=== PATIENT | male | born 1980 | race Caucasian/White ===

== ENCOUNTER → 2017-01-11 | Outpatient (CLI) | payer OTHER ==
[~2017-01-11] MED LIST: VENTOLIN H0.09 MG/AC INH
== END | disposition home or self-care (01) ==
LOC: RESCLI 09:47
DX: L03.818 Cellulitis of other sites (principal); I10 Essential (primary) hypertension; E66.01 Morbid (severe) obesity due to excess calories; E78.00 Pure hypercholesterolemia, unspecified; E11.65 Type 2 diabetes mellitus with hyperglycemia; Z88.1 Allergy status to other antibiotic agents

== ENCOUNTER → 2017-01-18 | Outpatient (CLI) | payer OTHER | END | disposition home or self-care (01) | LOC: RESCLI 03:10 | DX: E11.65 Type 2 diabetes mellitus with hyperglycemia (principal); L03.818 Cellulitis of other sites; B35.3 Tinea pedis; I10 Essential (primary) hypertension; E66.01 Morbid (severe) obesity due to excess calories; E78.00 Pure hypercholesterolemia, unspecified; L81.9 Disorder of pigmentation, unspecified; R00.0 Tachycardia, unspecified; L25.9 Unspecified contact dermatitis, unspecified cause ==

== ENCOUNTER → 2017-03-15 | Outpatient (CLI) | payer OTHER ==
--- NOTE | 2017-03-15 11:19 | NUR ---
INFORMED SIGNED CONSENT OBTAINED FOR CGXT WITH DR ARGUETA. RESTING EKG IN SUPINE POSTION NSR HR 92 BP 168/94. STANDING HR 95 BP 148/100. PT COMPLETED 7:10 OF A KERLINE PROTOCOL WITH COMPLETION OF 1:10 OF STAGE III AT 3.4 MPH AND 14% GRADE. PT REACHED A PEAK HR OF 166 WHICH REPRESENTS 88% OF PREDICTED MAXIMUM AND A PEAK BP OF 248/50. NO ARRHYTHMIAS OR ST CHANGES NOTED. TEST TERMINATED DUE TO FATIGUE. LAST RECOVERY HR OF 118 BP 170/78. PT IN STABLE CONDITION, AWAITING NUCLEAR IMAGES.
== END | disposition home or self-care (01) ==
LOC: CARD 01:48
DX: R07.89 Other chest pain (principal); R06.02 Shortness of breath

== ENCOUNTER → 2017-03-17 | Outpatient (CLI) | payer OTHER | END | disposition home or self-care (01) | LOC: US 00:48 | DX: M54.12 Radiculopathy, cervical region (principal); L53.9 Erythematous condition, unspecified; M79.89 Other specified soft tissue disorders ==

== ENCOUNTER → 2017-05-31 | Outpatient (CLI) | payer OTHER | END | disposition home or self-care (01) | LOC: RESCLI 10:14 | DX: I10 Essential (primary) hypertension (principal); H10.31 Unspecified acute conjunctivitis, right eye; E11.65 Type 2 diabetes mellitus with hyperglycemia; E78.00 Pure hypercholesterolemia, unspecified; E66.01 Morbid (severe) obesity due to excess calories ==

== ENCOUNTER → 2017-08-15 | Outpatient (CLI) | payer OTHER ==
[2017-08-15 14:31] LABS: BASO # 0.1 10*3/uL (0.0-0.1); BASO % 0.6 % (0.0-1.0); EOS # 0.1 10*3/uL (0.0-0.4); EOS % 1.5 % (1.0-4.0); HEMATOCRIT 44.6 % (42.0-52.0); HEMOGLOBIN 15.2 g/dl (14.0-18.0); LYMPH # 2.6 10*3/uL (1.3-4.4); LYMPH % 27.6 % (27.0-41.0); MEAN CELL VOLUME 82.3 fl (80.0-94.0); MEAN CORPUSCULAR HGB CONC 34.1 g/dl (33.0-37.0); MEAN PLATELET VOLUME 9.5 fl (9.6-12.3); MONO # 0.5 10*3/uL (0.1-1.0); NEUT # 6.2 10*3/uL (2.3-7.9); NEUT % 64.8 % (47.0-73.0); PLATELET COUNT AUTOMATED 317 10*3/uL (130-400); RED BLOOD COUNT 5.42 10*6/uL (4.50-5.90); RED CELL DISTRI WIDTH 13.2 % (0-14.5); WHITE BLOOD COUNT 9.6 10*3/uL (4.8-10.8)
[2017-08-15 14:49] LABS: ALKALINE PHOSPHATASE 78 U/L (45-117); BUN 15 mg/dl (7-24); CHLORIDE 103 mmol/L (98-107); CHOLESTEROL 197 mg/dL (<200); CREATININE 1.05 mg/dL (0.70-1.30); HDL CHOLESTEROL 39 mg/dl (40-60); LDL CHOLESTEROL 111 mg/dL (9-159); POTASSIUM 3.7 mmol/L (3.5-5.1); SGOT/AST 13 IU/L (3-35); SGPT/ALT 30 U/L (12-78); SODIUM 139 mmol/L (136-145); TOTAL PROTEIN 7.9 gm/dL (6.4-8.2); TRIGLYCERIDES 235 mg/dl (<150); VLDL CHOLESTEROL 47 mg/dL (6-40)
== END | disposition home or self-care (01) ==
LOC: LAB 13:05
PROVIDERS: Internal Medicine
DX: Z00.00 Encounter for general adult medical examination without abnormal findings (principal); I10 Essential (primary) hypertension; E11.65 Type 2 diabetes mellitus with hyperglycemia

== ENCOUNTER → 2017-12-26 | Outpatient (CLI) | payer OTHER ==
[~2017-12-26] MED LIST changes: +GLUCOPHAGE1000 MG PO; +HYDROCHLOROTHIA25 M1 PO; +JANUMET 50-1,01 EACH PO; +PRINIVIL10 MG PO
[2017-12-26 09:45] LABS: BASO # 0.1 10*3/uL (0.0-0.1); BASO % 0.6 % (0.0-1.0); EOS # 0.1 10*3/uL (0.0-0.4); EOS % 1.4 % (1.0-4.0); HEMATOCRIT 46.8 % (42.0-52.0); HEMOGLOBIN 14.9 g/dl (14.0-18.0); LYMPH # 2.3 10*3/uL (1.3-4.4); LYMPH % 24.6 % (27.0-41.0); MEAN CELL VOLUME 83.4 fl (80.0-94.0); MEAN CORPUSCULAR HGB 26.6 pg (27.0-31.0); MEAN CORPUSCULAR HGB CONC 31.8 g/dl (33.0-37.0); MEAN PLATELET VOLUME 9.2 fl (9.6-12.3); MONO # 0.6 10*3/uL (0.1-1.0); MONO % 6.4 % (3.0-9.0); NEUT # 6.2 10*3/uL (2.3-7.9); NEUT % 66.7 % (47.0-73.0); PLATELET COUNT AUTOMATED 308 10*3/uL (130-400); RED BLOOD COUNT 5.61 10*6/uL (4.50-5.90); RED CELL DISTRI WIDTH 13.1 % (0-14.5); WHITE BLOOD COUNT 9.3 10*3/uL (4.8-10.8)
[2017-12-26 10:13] LABS: ALBUMIN 4.3 gm/dl (3.1-4.5); ALKALINE PHOSPHATASE 68 U/L (45-117); BUN 20 mg/dl (7-24); CHLORIDE 104 mmol/L (98-107); CHOLESTEROL 156 mg/dL (<200); CREATININE 1.12 mg/dL (0.70-1.30); HDL CHOLESTEROL 38 mg/dl (40-60); LDL CHOLESTEROL 80 mg/dL (9-159); POTASSIUM 3.6 mmol/L (3.5-5.1); SGOT/AST 12 IU/L (3-35); SGPT/ALT 33 U/L (12-78); SODIUM 139 mmol/L (136-145); TOTAL PROTEIN 8.1 gm/dL (6.4-8.2); TRIGLYCERIDES 188 mg/dl (<150); VLDL CHOLESTEROL 38 mg/dL (6-40)
== END | disposition home or self-care (01) ==
LOC: LAB 09:15
PROVIDERS: Internal Medicine
DX: I10 Essential (primary) hypertension (principal); E11.65 Type 2 diabetes mellitus with hyperglycemia; E66.01 Morbid (severe) obesity due to excess calories; H10.31 Unspecified acute conjunctivitis, right eye

== ENCOUNTER → 2018-02-10 | Day surgery (SDC) | payer OTHER ==
[~2018-02-10] VITALS: Ht 180.3 cm; Wt 122.5 kg
[~2018-02-10] MED LIST changes: +PROAIR HFA8.5 GM INH
--- NOTE | ~2018-02-10 | PROC NOTE ---
[place], [place] PROCEDURE NOTE NAME: SALLIE ARTIS UNIT #: [id number] ROOM: DOCTOR: CARLOS HERNANDEZ MD BIRTHDATE: [birth year] DOS: 02/10/2018 PREOPERATIVE DIAGNOSIS: Left temporal scalp soft tissue mass. POSTOPERATIVE DIAGNOSIS: Left temporal scalp epidermal inclusion cyst. PROCEDURE: Excision of left temporal epidermal inclusion cyst. SURGEON: Carlos Hernandez MD [employer]: SUSIE. ANESTHESIA: Local (1% lidocaine with epinephrine). INDICATIONS: This is a 37-year-old gentleman with a left temporal scalp mass, which is growing and he is here because he wants it removed. The procedure and its complications were explained to the patient in detail preoperatively. Complications that were discussed included but were not limited to bleeding, infection, hematoma/seroma/abscess formation and prolonged pain. He agreed to proceed. DESCRIPTION OF PROCEDURE: After identifying the patient, the patient was brought to the operating suite and laid in the supine position. After a time-out procedure was called, the parts were painted and draped in the usual sterile fashion. An elliptical incision was marked. Local anesthesia was infiltrated. An incision was made with the help of a knife and deepened in layers. The cyst was excised in its entirety with the help of blunt and sharp dissection and excised in its entirety. It was sent for histopathological diagnosis. Hemostasis was achieved with the help of electrocautery. Thereafter, the subcutaneous tissue was approximated with the help of 3-0 Vicryl in a running fashion and the edges of the skin were approximated with the help of 4-0 Vicryl in a subcuticular running fashion. Dressings were placed. The patient tolerated the procedure well. There were no complications. He was brought back to the recovery room in stable fashion. Dr. Carlos Hernandez, the attending surgeon, was present throughout the operating case. Carlos Hernandez MD CM:PROCNOTE:PROCEDURE NOTE [id number] CARLOS HERNANDEZ MD
[2018-02-10 06:47] VITALS: BP 138/82
[2018-02-10 07:24] VITALS: BP 122/82
== END | disposition home or self-care (01) ==
LOC: SDC 01-31 10:15
DX: L72.11 Pilar cyst (principal); I10 Essential (primary) hypertension; E11.9 Type 2 diabetes mellitus without complications; E78.00 Pure hypercholesterolemia, unspecified; J45.909 Unspecified asthma, uncomplicated; Z79.899 Other long term (current) drug therapy; Z88.1 Allergy status to other antibiotic agents; Z98.890 Other specified postprocedural states; Z82.49 Family history of ischemic heart disease and other diseases of the circulatory system

== ENCOUNTER → 2018-02-22 | Outpatient (CLI) | payer OTHER | END | disposition home or self-care (01) | LOC: RESCLI 10:03 | DX: I10 Essential (primary) hypertension (principal); K52.9 Noninfective gastroenteritis and colitis, unspecified; E11.65 Type 2 diabetes mellitus with hyperglycemia; R68.89 Other general symptoms and signs; E55.9 Vitamin D deficiency, unspecified; J45.909 Unspecified asthma, uncomplicated; R00.0 Tachycardia, unspecified ==

== ENCOUNTER → 2018-07-18 | Outpatient (CLI) | payer OTHER | END | disposition home or self-care (01) | LOC: RESCLI | DX: I10 Essential (primary) hypertension (principal); K52.9 Noninfective gastroenteritis and colitis, unspecified; E11.9 Type 2 diabetes mellitus without complications; J45.20 Mild intermittent asthma, uncomplicated; E55.9 Vitamin D deficiency, unspecified; I51.7 Cardiomegaly; R60.9 Edema, unspecified; E78.00 Pure hypercholesterolemia, unspecified; Z79.899 Other long term (current) drug therapy; Z88.0 Allergy status to penicillin ==

== ENCOUNTER → 2018-10-05 | Outpatient (CLI) | payer OTHER ==
[2018-10-12 18:05] LABS: ALTERNARIA ALTERNATA, IGE <0.10 kU/L (Class 0); AMERICAN ELM, IGE <0.10 kU/L (Class 0); ASPERGILLUS FUMIGATU, IGE <0.10 kU/L (Class 0); BERMUDA GRASS, IGE <0.10 kU/L (Class 0); BIRCH, COMMON SILVER IGE <0.10 kU/L (Class 0); CLADOSPORIUM HERBARU, IGE <0.10 kU/L (Class 0); CORN, IGE <0.10 kU/L (Class 0); DOG DANDER, IGE <0.10 kU/L (Class 0); IMMUNOGLOBULIN IgE 002170 56 IU/mL (6-495); MAPLE LEAF SYCAMORE, IGE <0.10 kU/L (Class 0); MAPLE/BOX ELDER, IGE <0.10 kU/L (Class 0); MILK (COW), IGE <0.10 kU/L (Class 0); MOUSE URINE IGE <0.10 kU/L (Class 0); PEANUT, IGE <0.10 kU/L (Class 0); PENICILLIUM CHRYSOGENUM, IGE <0.10 kU/L (Class 0); ROUGH PIGWEED, IGE <0.10 kU/L (Class 0); SHEEP SORREL (DOCK), IGE <0.10 kU/L (Class 0); SHORT RAGWEED, IGE <0.10 kU/L (Class 0); SOYBEAN, IGE <0.10 kU/L (Class 0); TIMOTHY, IGE <0.10 kU/L (Class 0); WALNUT TREE, IGE <0.10 kU/L (Class 0); WHEAT, IGE <0.10 kU/L (Class 0); WHITE ASH, IGE <0.10 kU/L (Class 0); WHITE MULBERRY, IGE <0.10 kU/L (Class 0); WHITE OAK, IGE <0.10 kU/L (Class 0)
== END | disposition home or self-care (01) ==
LOC: LAB 15:15
PROVIDERS: Specialist
DX: J30.2 Other seasonal allergic rhinitis (principal)

== ENCOUNTER → 2018-12-05 | Outpatient (CLI) | payer OTHER | END | disposition home or self-care (01) | LOC: RESCLI 00:25 | DX: J45.20 Mild intermittent asthma, uncomplicated (principal); E55.9 Vitamin D deficiency, unspecified; E11.9 Type 2 diabetes mellitus without complications; I10 Essential (primary) hypertension; G62.9 Polyneuropathy, unspecified; J33.9 Nasal polyp, unspecified; K21.9 Gastro-esophageal reflux disease without esophagitis; B35.3 Tinea pedis; L20.82 Flexural eczema; Z91.14 Patient's other noncompliance with medication regimen; Z79.899 Other long term (current) drug therapy ==

== ENCOUNTER → 2019-02-20 | Outpatient (CLI) | payer OTHER ==
[2019-02-20 16:11] LABS: THYROID STIM HORMONE (HS) 0.896 uIU/ml (0.358-4.75)
== END | disposition home or self-care (01) ==
LOC: RESCLI 00:06
PROVIDERS: Family Medicine
DX: J45.20 Mild intermittent asthma, uncomplicated (principal); E11.9 Type 2 diabetes mellitus without complications; I10 Essential (primary) hypertension; E55.9 Vitamin D deficiency, unspecified; B35.3 Tinea pedis; K21.9 Gastro-esophageal reflux disease without esophagitis; R21 Rash and other nonspecific skin eruption; Z79.899 Other long term (current) drug therapy

== ENCOUNTER → 2020-05-26 | Outpatient (CLI) | payer SELFPAY | END | disposition home or self-care (01) | LOC: COVID19 13:35 | PROVIDERS: ATTEND Internal Medicine | DX: U07.1 COVID-19 (principal) ==